=== PATIENT | female | born 1990 | race Two or more races ===

== ENCOUNTER 2023-05-10 12:40 | Outpatient (CLI) | payer OTHER ==
[~2023-05-10 12:40] MED LIST: FEOSOL1 TAB PO
== END 2023-05-10 12:52 | disposition home or self-care (01) ==
LOC: MRI 12:40
PROVIDERS: ATTEND Obstetrics & Gynecology
DX: Z34.92 Encounter for supervision of normal pregnancy, unspecified, second trimester (principal); R19.09 Other intra-abdominal and pelvic swelling, mass and lump; R10.2 Pelvic and perineal pain; N83.9 Noninflammatory disorder of ovary, fallopian tube and broad ligament, unspecified; Z80.41 Family history of malignant neoplasm of ovary
CPT/HCPCS: 72195